=== PATIENT | male | born 1990 | race Caucasian/White ===

== ENCOUNTER 2019-05-08 11:18 | Emergency (ER) | payer OTHER ==
[~2019-05-08] VITALS: Ht 185.4 cm; Wt 91.0 kg
[2019-05-08] MEDS ORDERED: IBUPROFEN 600MG TABLET PO ONE (12:00)
[2019-05-08] MEDS ORDERED: ACETAMINOPHEN 500MG TABLET PO ONE (12:00)
[2019-05-08 12:44] VITALS: BP 132/72
== END 2019-05-08 12:46 | disposition home or self-care (01) ==
LOC: ER 11:18
DX: M25.562 Pain in left knee (principal); W10.9XXA Fall (on) (from) unspecified stairs and steps, initial encounter; Y93.01 Activity, walking, marching and hiking; Y92.89 Other specified places as the place of occurrence of the external cause; Y99.8 Other external cause status
CPT/HCPCS: 73610; 99283

== ENCOUNTER 2019-07-24 20:51 | Emergency (ER) | payer OTHER ==
[~2019-07-24] VITALS: Ht 185.4 cm; Wt 113.0 kg
[2019-07-24 22:20] VITALS: BP 127/74
== END 2019-07-24 22:20 | disposition home or self-care (01) ==
LOC: ER 20:51
DX: J06.9 Acute upper respiratory infection, unspecified (principal)
CPT/HCPCS: 99283